=== PATIENT | male | born 1985 | race Caucasian/White ===

== ENCOUNTER 2020-10-01 12:01 | Observation (INO) | payer OTHER ==
[~2020-10-01] VITALS: Ht 185.4 cm; Wt 99.3 kg
[2020-10-01 13:17] LABS: HEMOGLOBIN 19.5 gm/dl (14.0-17.5); RED BLOOD COUNT 5.81 M/UL (4.20-5.50); WHITE BLOOD COUNT 8.6 K/UL (4.5-11.0)
[2020-10-01 13:44] LABS: BUN/CREATININE RATIO 16 (0-10)
[2020-10-01] MEDS ORDERED: CELEXA 20MG TAB20 MG PO (15:27)
[2020-10-01] MEDS ORDERED: OMEPRAZOLE20 MG PO (15:27)
[2020-10-01] MEDS ORDERED: DEXAMETHASONE0.5 M1 PO (15:28)
[2020-10-01] MEDS ORDERED: LEVOTHYROXINE137 MC1 PO (15:28)
[2020-10-01] MEDS ORDERED: FLORINEF 0.1 M0.1 MG PO (15:29)
[2020-10-01] MEDS ORDERED: PROAIR HFA8.5 GM INH (15:29)
[2020-10-01] MEDS ORDERED: ASPIRIN EC81 MG PO (15:29)
[2020-10-01] MEDS ORDERED: MOTRIN IB200 MG PO (15:30)
[2020-10-01] MEDS ORDERED: TYLENOL325 MG PO (15:30)
[2020-10-01 19:32] LABS: BUN/CREATININE RATIO 17 (0-10)
--- NOTE | 2020-10-01 20:30 | NUR ---
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 FARM SPECIALIST STATED THAT WE WERE OUT OF TELEMETRY BOXES CURRENTLY. STATED THEY WOULD SEND ONE ONCE THEY GOT A NEW ONE.
[2020-10-02 06:00] LABS: HEMOGLOBIN 17.3 gm/dl (14.0-17.5); RED BLOOD COUNT 5.17 M/UL (4.20-5.50); WHITE BLOOD COUNT 8.8 K/UL (4.5-11.0)
[2020-10-02 06:17] LABS: BUN/CREATININE RATIO 18 (0-10)
[2020-10-02 13:54] LABS: BUN/CREATININE RATIO 17 (0-10)
[2020-10-02 19:55] LABS: BUN/CREATININE RATIO 11 (0-10)
[2020-10-03 06:27] LABS: BUN/CREATININE RATIO 17 (0-10)
== END 2020-10-03 11:55 | disposition home or self-care (01) ==
LOC: ER1 12:01 → CDU 15:05 → MED SURG 4 15:05
PROVIDERS: Emergency Medicine; ADMIT Internal Medicine
DX: E87.1 Hypo-osmolality and hyponatremia (principal); E03.9 Hypothyroidism, unspecified; E27.1 Primary adrenocortical insufficiency; K21.9 Gastro-esophageal reflux disease without esophagitis; F41.9 Anxiety disorder, unspecified; F17.210 Nicotine dependence, cigarettes, uncomplicated; Z20.822 Contact with and (suspected) exposure to COVID-19; Z79.82 Long term (current) use of aspirin; Z79.899 Other long term (current) drug therapy
CPT/HCPCS: 36415; 80048; 80053; 82024; 82533; 83735; 84439; 84443; 85025; 94664; 94760; 96374; 96375; 99285; G0378; J1720; J2405; J7030; U0002